=== PATIENT | male | born 1990 | race Caucasian/White ===

== ENCOUNTER 2021-06-10 07:55 | Emergency (ER) | payer OTHER ==
[~2021-06-10 07:55] MED LIST: CLEOCIN HCL300 MG PO; IBUPROFEN600 MG PO; NAPROSYN500 MG PO; ONDANSETRON ODT4 MG SL
[2021-06-10 08:46] LABS: HEMOGLOBIN 15.1 gm/dl (14.0-17.5); RED BLOOD COUNT 5.02 M/UL (4.20-5.50); WHITE BLOOD COUNT 6.7 K/UL (4.5-11.0)
[2021-06-10 09:06] LABS: BUN/CREATININE RATIO 12 (0-10)
[2021-06-10] MEDS ORDERED: FLOMAX 0.4 MG0.4 MG PO (10:26)
== END 2021-06-10 11:00 | disposition home or self-care (01) ==
LOC: ER1 07:55
PROVIDERS: Nurse Practitioner
DX: N20.0 Calculus of kidney (principal); Z88.1 Allergy status to other antibiotic agents; Z88.5 Allergy status to narcotic agent
CPT/HCPCS: 80053; 81001; 85025; 87086; 99284